=== PATIENT | female | born 2000 | race Caucasian/White ===

== ENCOUNTER 2025-01-06 16:38 | Emergency (ER) | payer OTHER, SELFPAY ==
[2025-01-06 16:43] VITALS: BP 146/100; PULSE 102; RESP 20; O2SAT 97; BMI 41.1
--- NOTE | 2025-01-06 17:25 | PC.NURSE ---
Pt ate spicy juliana food and felt her tongue tingle. [place] like she was having allergic reaction. Went to [facility] & staff called EMS. Pt maintaining airway and secretions and no evidence of acute distress. A&Ox4.
--- NOTE | 2025-01-06 17:50 | ED.ALLEREA ---
HPI - Allergic Reaction <NJ Jiang Last Filed: 01/06/25 19:01> General Chief complaint: Allergic Reaction Stated complaint: Allergic Reaction Time Seen by Provider: 01/06/25 17:48 Mode of arrival: Ambulatory History of Present Illness HPI narrative: Arian Field is a very pleasant 24-year-old female with a past medical history of weekly allergy shots for allergy to pet dander who presents to the emergency department via EMS from the walk-in clinic for possible allergic reaction to [place] food. Patient was at work, eating [place] food spicy 4, which she states was quite spicy, shortly after eating she felt like her tongue was tingling and felt like her cheeks or also feeling warm/tingling. She developed sensation of a lump in her throat. She went to the walk-in clinic and EMS was called to bring her to the ER for potential anaphylaxis. Patient states she is having no difficulty breathing, no swallowing, no swelling of the mouth, no hives rashes, nausea, vomiting, shortness of breath. She did take Lakshmi already. As time has passed she states that she still feels somewhat of a lump in the left side of her throat and the very tip of her tongue is tingling otherwise she is feeling normal. She is extremely anxious because of the whole situation. She does have an EpiPen however she has never needed to use it. She has an allergy testing done before which revealed allergies to dust, cat and dog dander, no food allergies however they just did general food allergy testing. Related Data Previous Rx's ?Medication ?Instructions ?Recorded famotidine 40 mg tablet (Pepcid) 40 mg PO DAILY 5 days #5 tabs 01/06/25 prednisone 20 mg tablet 40 mg (2 x 20 mg) PO DAILY 5 days 01/06/25 #10 tabs Allergies Allergy/AdvReac Type Severity Reaction Status Date / Time cat dander AdvReac Verified 01/06/25 16:43 Review of Systems <NJ Jiang Last Filed: 01/06/25 19:01> Review of Systems ROS Unobtainable: All systems reviewed & are unremarkable except as noted in HPI and below Exam <NJ Jiang Last Filed: 01/06/25 19:01> Narrative Exam Narrative: GENERAL: 24 year old patient appears stated age. Well-developed patient, in no acute distress. HEAD: Atraumatic. Normocephalic. EYES: PERRL. Extraocular motions intact. No scleral icterus. No injection or drainage. ENT: Nose without bleeding, purulent drainage. Throat without erythema, tonsillar hypertrophy or exudate. Airway patent. No angioedema. NECK: Trachea midline. Cervical ROM intact. No stridor. CARDIOVASCULAR: Regular rate and rhythm. RESPIRATORY: ?Nonlabored respirations. ?Speaking in clear, full sentences. ?Clear to auscultation. Breath sounds equal bilaterally. No wheezes, rales, or rhonchi. ? EXTREMITIES: No edema or joint tenderness. NEURO: AOx3. ?Clear speech. ?Moves all 4 extremities appropriately. SKIN: No rash or erythema of visible areas Initial Vital Signs Initial Vital Signs: Vital Signs Pulse Rate 102 H 01/06/25 16:43 Respiratory Rate 20 01/06/25 16:43 Blood Pressure 146/100 H 01/06/25 16:43 Pulse Oximetry 97 01/06/25 16:43 Oxygen Delivery Method Room Air 01/06/25 16:43 <Kevin Villegas MD - Last Filed: 01/10/25 07:54> Initial Vital Signs Initial Vital Signs: Vital Signs Pulse Rate 102 H 01/06/25 16:43 Respiratory Rate 20 01/06/25 16:43 Blood Pressure 146/100 H 01/06/25 16:43 Pulse Oximetry 97 01/06/25 16:43 Oxygen Delivery Method Room Air 01/06/25 16:43 Course <Julia Calderon PA-C - Last Filed: 01/06/25 19:01> Orders Ordered: Discontinued Medications Famotidine (Famotidine 20 Mg Tablet) 40 mg PO NOW ONE Stop: 01/06/25 18:12 Last Admin: 01/06/25 18:25 Dose: 40 mg Documented By: [place] Prednisone (Prednisone 20 Mg Tablet) 60 mg PO NOW ONE Stop: 01/06/25 18:11 Last Admin: 01/06/25 18:26 Dose: 60 mg Documented By: [place] Vital Signs Vital signs: Vital Signs - 8 hr 01/06/25 16:43 01/06/25 18:28 Pulse Rate 102 H 83 Respiratory Rate 20 20 Blood Pressure 146/100 H 122/91 H Pulse Oximetry 97 98 Oxygen Delivery Method Room Air Room Air <Kevin Villegas MD - Last Filed: 01/10/25 07:54> Orders Ordered: Discontinued Medications Famotidine (Famotidine 20 Mg Tablet) 40 mg PO NOW ONE Stop: 01/06/25 18:12 Last Admin: 01/06/25 18:25 Dose: 40 mg Documented By: [place] Prednisone (Prednisone 20 Mg Tablet) 60 mg PO NOW ONE Stop: 01/06/25 18:11 Last Admin: 01/06/25 18:26 Dose: 60 mg Documented By: [place] Vital Signs Vital signs: Vital Signs - 8 hr 01/06/25 16:43 01/06/25 18:28 Pulse Rate 102 H 83 Respiratory Rate 20 20 Blood Pressure 146/100 H 122/91 H Pulse Oximetry 97 98 Oxygen Delivery Method Room Air Room Air MDM - Allergic Reaction <Julia Calderon PA-C - Last Filed: 01/06/25 19:01> [facility] Narrative Medical decision making narrative: 24-year-old female with a past medical history of weekly allergy shots for allergy to pet dander who presents to the emergency department via EMS from the walk-in clinic for possible allergic reaction to [place] food. Differential diagnosis includes but isn't limited to allergic reaction, angioedema, reaction to spicy food, etc. On exam patient is in no acute distress, nontoxic appearing, no difficulty breathing, tolerating p.o. Initial vital signs with elevated heart rate and blood pressure, patient admits two feeling extremely anxious about the whole situation. Oropharynx is widely patent, no lip or tongue swelling, no stridor or wheezing, no hives. Patient clinically not experiencing anaphylaxis. She already took Lakshmi, we will treat with prednisone and Pepcid and continue to monitor. Patient feels well after medication. Still feels like she has someone of the lump on the left side of her throat but no difficulty swallowing, breathing, she feels safe and would like to go home. She does have an EpiPen at home. We will treat with 5 additional days of prednisone, Pepcid, Lakshmi. 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 Recommend discussing her symptoms with them, potentially having more extensive food allergy testing. Recommended avoiding [place] food until she has further testing. Vital signs within normal limits, patient verbalized understanding of all information, ED return precautions discussed. She is stable for discharge home. Discharge Plan Departure Patient Disposition: Home Clinical Impression: Food allergy Instructions: DI for General Allergic Reactions Activity Restrictions/Additional Instructions: Dear Ms. Field, Thank you for coming to the emergency department. Today you were evaluated for symptoms that developed after eating [place] food. You were treated with steroids and Pepcid, your physical exam was reassuring you did not emergently need epi. Would like you to continue taking prednisone, Pepcid, Lakshmi for the next 5 days. If you ever develop difficulty breathing, throat closing or other concerns for anaphylaxis please use your EpiPen and call 911. Please follow up with your primary care doctor within the next 2-3 days for ER follow-up. (If you do not have a PCP you can call [phone]. ?to schedule an appointment with an [facility] Primary Care Provider) IF YOU DEVELOP ANY NEW OR WORSENING SYMPTOMS, RETURN TO THE ER! Please read the attached instructions, they highlight more specific treatments and interventions for you at home. Thank you for letting me participate in your care, Julia Calderon PA-C Prescriptions: New prednisone 20 mg tablet 40 mg PO DAILY 5 Days Qty: 10 0RF famotidine [Pepcid] 40 mg tablet 40 mg PO DAILY 5 Days Qty: 5 0RF Stand Alone Forms: Patient Portal/API ED Sign-out <Kevin Villegas MD - Last Filed: 01/10/25 07:54> Cosign ED Attending Cosmaurisioature Attestation: I was immediately available in the department for consultation. ?This documentation has been reviewed and I agree with assessment and plan. Supervised by Kevin Villegas MD
[2025-01-06] MEDS: FAMOTIDINE 20 MG TABLET 40 MG PO (18:25)
[2025-01-06] MEDS: predniSONE 20 MG TABLET 60 MG PO (18:26)
[2025-01-06 18:28] VITALS: BP 122/91; PULSE 83; RESP 20; O2SAT 98
--- NOTE | 2025-01-06 18:30 | PC.NURSE ---
Pt a&ox4. Maintainng airway and secretions. No acute distress observed.
[2025-01-06 19:04] VITALS: BP 122/91; PULSE 76; RESP 18; O2SAT 98
== END 2025-01-06 19:05 | disposition home or self-care (01) ==
PROVIDERS: Emergency Provider Physician Assistant
DX: T78.40XA Allergy, unspecified, initial encounter (principal); R20.2 Paresthesia of skin
CPT/HCPCS: 99283; A9270